=== PATIENT | male | born 1945 | race Caucasian/White ===

== ENCOUNTER 2018-04-01 06:40 | Day surgery (SDC) | payer MEDICARE, OTHER ==
[~2018-04-01] VITALS: Ht 180.3 cm; Wt 115.7 kg
[~2018-04-01 06:40] MED LIST: DAILY MULTIPLE1 EACH PO; DEMADEX20 MG PO; KLOR-CON M1010 MEQ PO; SARAFEM20 MG PO; VITAMIN D1000 UNI1 PO
--- NOTE | 2018-04-01 11:41 | NUR ---
04/01/18 1141 Sheets,[place] 1116 PT ARRIVED TO PACU WITH ORAL AIRWAY IN PLACE. O2 SAT 90%, OXYMASK IN PLACE AT 5L. 1120 DIAGRAMMER AT BEDSIDE AND DOING JAW TRUST ON PT, PT REACTIVE TO PAINFUL STIMULI AND PT OPENED EYES AND ORAL AIRWAY IS REMOVED. AUDIBLE WHEEZES NOTED, PT ENCOURAGED TO COUGH AND CLEARED WITH COUGHING. WITH AUSCULTATION LEFT LUNG CONTINUES TO HAVE WHEEZING THROUGHOUT, PT ENCOURGED TO COUGH, PT REPORTS "HE FEELS LIKE HE HAS A COLD." 1130 PT ABLE TO MOVE IN BED, PT ROLLED HIMSELF TO LEFT SIDE. PT REPORTS THE NEED TO VOID, PT EDUCATION GIVEN ABOUT HELLER AND MEDICATION IN BLADDER.
--- NOTE | 2018-04-01 12:33 | NUR ---
HELLER CATHETER UNCLAMPED, 50 ML OF DARK FLUID WITH MINIMAL AMOUNT OF BLEEDING. PT C/O PAIN AND THE FEELING THAT HIS BLADDER IS FULL. IRRIGATED CATHETER WITH 60 ML OF NS PER DR MUNIZ, FLUID RETURNED CLEAR WITH SCANT AMOUNT OF BRIGHT RED BLOOD. PT CONTINUES TO C/O FEELING THAT BLADDER IS FULL, BUT UNABLE TO URINATE. BLADDER SCAN PER DR MUNIZ SHOWS 0 ML. HELLER CATHETER REMOVED, 25 ML OF FLUID REMOVED FROM BALLOON.
--- NOTE | 2018-04-01 13:19 | NUR ---
PT CONTINUES TO C/O BLADDER SPASMS, DECLINES DILUADID FOR PAIN. VITAL SIGNS STABLE. PT DRANK 300 ML OF WATER AND ATE ONE CUP OF JELLO, TOLERATED WELL AND DENIES NAUSEA.
--- NOTE | 2018-04-01 13:38 | NUR ---
PT AMBULATED WITH STEADY GAIT TO BATHROOM. REPORTS HE VOIDED A FEW DROPS. PT HAS BLADDER SPASMS AND LEAKS URINE. DR MUNIZ NOTIFIED ADND 2ND B&O SUPPOSITORY ORDERED AND GIVEN.
--- NOTE | 2018-04-01 14:14 | NUR ---
PT AMBULATED TO BATHROOM WITH STEADY GAIT TO ATTEMPT TO URINATE. PT CONTINUES TO FEEL LIKE HIS BLADDER IS FULL. PT WAS RESTING ON LEFT SIDE WHEN THIS RN ENTERED THE ROOM. PT WANTING TO GO HOME, AWARE OF THE NEED TO URINATE PRIOR TO D/C.
--- NOTE | 2018-04-01 14:27 | NUR ---
PT SITTING UP IN BED, SOMEWHAT RESTLESS. PT MENTIONED THAT LIGHTS WERE TOO BRIGHT FOR HIM TO SLEEP. NO INTEREST IN TV-JUST SLEEP. TURNED LIGHTS OFF, HE SEEMED MORE RELAXED. THANKED ME, DECLINED PRAYER. WILL FOLLOW NEEDED
--- NOTE | 2018-04-01 14:33 | NUR ---
PT AMBULATED TO AND FROM BATHROOM WITH STEADY GAIT. PASSED SMALL AMOUTN OF URINE PER PT MIXED WITH BLOOD AND SMALL BM. PT REPORTS HE IS READY TO GO HOME. PT TAKING MORE PO FLUID. PT GETTING DRESSED AT THIS TIME. PULL UP BRIEF PROVIDED TO PT.
--- NOTE | 2018-04-04 16:05 | OR ---
[facility] [address], [place] [address] Signed DATE OF OPERATION: 04/01/2018 SURGEON: Eros Muniz MD PREOPERATIVE DIAGNOSES: 1. Gross hematuria. 2. Bladder mass. POSTOPERATIVE DIAGNOSES: 1. History of gross hematuria. 2. 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 PROCEDURES PERFORMED: 1. Urethral dilation using [place] sounds. 2. Transurethral resection of bladder tumor-median. 3. Intravesical instillation of mitomycin chemotherapy. ANESTHESIA: Spinal. ESTIMATED BLOOD LOSS: Minimal. COMPLICATIONS: None. SPECIMENS: Fragments of large papillary bladder mass sent to Pathology for evaluation. DRAINS: A 20-Portuguese 2-way Pérez catheter, capped and taped to the patient's abdomen. INDICATIONS FOR PROCEDURE: Mr. Logan is a very pleasant 72-year-old gentleman with a past medical history of alcohol abuse, hepatitis C, and [id number] of tobacco use, who recently was sent to me for evaluation after experiencing multiple bouts of painless gross hematuria. He had undergone an imaging study, which revealed a large filling defect within the bladder. Based on the imaging results, the decision was made to place him directly on the operating room schedule to undergo diagnostic cystoscopy with likely transurethral Electronically Signed By: EROS MUNIZ MD 04/04/18 1605 PATIENT NAME: FORTINO LOGAN OPERATIVE REPORT DATE OF : 47 REPORT #: [id number] PHYSICIAN: EROS MUNIZ MD PCP: GISELA LION PA-C REPORT IS CONFIDENTIAL AND NOT TO BE RELEASED WITHOUT AUTHORIZATION [facility] [address], [place] [address] Signed resection of bladder mass. He presents today to undergo the aforementioned procedure. OPERATIVE FINDINGS: 1. The patient's urethra was dilated from 20-Portuguese to 30-Portuguese using [place] sounds without difficulty. 2. Diagnostic cystoscopy revealed two large papillary bladder masses located on the dome of the bladder. Both appeared to have necrotic tissue associated with them. The larger mass was on the dome of the bladder closer to the anterior bladder wall, measuring approximately 2.5 cm in size. The tumor itself appeared to be somewhat poorly differentiated and again there was necrotic tissue associated with it. The smaller bladder mass was located in the true dome of the bladder and measured approximately 2 cm in size. Again, areas of necrosis were associated with this mass as well. Total mass size was approximately 4 to 4-1/2 cm in size. This tumor was difficult to resect due to the distance of the dome of the bladder from the bladder neck. It did require external pressure upon the patient's pelvis in order to bring the dome of the bladder down close enough for resection of the tumor, making this an extremely difficult resection. Most of the visualized tumor was resected; however, there was a high likelihood that there were remnants of tumor given the difficulty of the resection and the high risk of perforation at the dome. During the resection, the patient was breathing abdominally and was therefore not still enough for me to resect confidently for fear of bladder perforation near the dome. 3. Overall, 95% of the visible tumor was resected, and I was able to appreciate areas of perivesical fat and detrusor muscle. I am optimistic that I was able to obtain enough tissue sample for Pathology to confirm or deny the presence of invasion into the detrusor. Overall, the bladder tumors appeared to be aggressive and/or atypical in nature. The tumors did not involve either ureteral orifice. 4. Once the visible portion of tumors were resected, a bipolar button was used to cauterize the resection site. Once the patient's bladder was irrigated fully and the specimens were placed in a cup to be sent to Pathology, a 20-Portuguese two-way Pérez was inserted into the patient's bladder and filled with 25 mL of sterile saline. Approximately 40 mg in 20 mL of mitomycin was then instilled into the patient's bladder and the catheter was then attached to his abdomen. The patient will now turn to 20 minutes for a total of 80 minutes. DESCRIPTION OF PROCEDURE: After informed consent was obtained, the patient was taken back to the operating room. He was transferred from [facility] to the operating room table, where spinal anesthesia was induced. He was placed in the dorsal lithotomy position and his genitalia prepped and draped in standard sterile fashion. His urethra was then dilated using [place] sounds. Please see above findings. A rigid cystoscope with a 70-degree lens was then inserted into the patient's bladder and a diagnostic cystoscopy was performed. Please see above findings. I then removed the cystoscope and placed a 28-Portuguese sheath using a Electronically Signed By: EROS MUNIZ MD 04/04/18 160 PATIENT NAME: FORTINO LOGAN OPERATIVE REPORT DATE OF : 47 REPORT #: [id number] PHYSICIAN: EROS MUNIZ MD PCP: GISELA LION PA-C REPORT IS CONFIDENTIAL AND NOT TO BE RELEASED WITHOUT AUTHORIZATION [address] [address] Signed visual obturator. The visual obturator was then removed and then a resectoscope with a 24-Portuguese bipolar loop was then attached. The large tumor was then resected very carefully, all the while external pressure was placed by nursing staff to push the dome of the bladder down towards the resectoscope. Ideally, an extended resectoscope would have been useful in this situation, however, we did not have that particular device. I resected the tumor located at the dome and in areas I could easily see detrusor fiber as well as perivesical fat. There was no evidence of perforation of the dome of the bladder during the resection. Bilateral ureteral orifices were in their normal anatomic location and effluxing clear urine throughout the entire case. The UOs were not in proximity of the tumor. Once I was satisfied that as much of the visible tumor could be resected, I switched off the loop for bipolar button and then cauterized the bed of the tumor as best as I could. The patient's bladder was then irrigated and the fragments of bladder tumor were then sent to Pathology for evaluation. A 20-Portuguese 2-way Pérez catheter was then placed and 25 mL was instilled into the balloon. The catheter was flushed to confirm placement. I then instilled 40 mg in 20 mL of mitomycin into the patient's bladder and capped the catheter. The catheter was then attached to his abdomen. The procedure was then terminated. The patient tolerated the procedure well without any complication. He will now be transferred to the postanesthesia care unit in stable condition. DISPOSITION: I discussed the details of today's procedure with the patient's son-in-law and answered all of his questions. I made it clear to him that this tumor does appear to be likely high grade and possibly aggressive in nature. It appeared to be poorly differentiated and also was noted to have a lot of necrotic tissue associated with the tumor. In my experience, both of these characteristics point to a poor prognosis. I explained to him that we will need to get the pathology report to see if I was able to obtain adequate enough specimen to prove the presence of tumor cells within the detrusor muscle. At that point in time, the patient would be a candidate for cystectomy. If not, he will need to undergo repeat resection in approximately six weeks at which time the patient will need to be paralyzed in order to safely fully resect the possible remaining portions of the tumor. The patient's son-in-law verbalized understanding of this today. He will be discharged to home today with B and O suppositories along with Percocet 10/325, dispensed #30 as needed for pain along with oral antibiotics. He will be scheduled to return to clinic in 6 weeks to discuss his pathology results or sooner as needed. The patient's Pérez catheter will be discontinued prior to his discharge today. Eros Muniz MD Electronically Signed By: EROS MUNIZ MD 04/04/18 1605 PATIENT NAME: FORTINO LOGAN OPERATIVE REPORT DATE OF : 47 REPORT #: [id number] PHYSICIAN: EROS MUNIZ MD PCP: GISELA LION PA-C REPORT IS CONFIDENTIAL AND NOT TO BE RELEASED WITHOUT AUTHORIZATION [facility] [address], [place] [address] Signed AR/MODL /[id number] Copies: ~ Electronically Signed By: EROS MUNIZ MD 04/04/18 1605 PATIENT NAME: FORTINO LOGAN Mariana OPERATIVE REPORT DATE OF : 47 REPORT #: [id number] PHYSICIAN: EROS MUNIZ MD PCP: GISELA LION PA-C REPORT IS CONFIDENTIAL AND NOT TO BE RELEASED WITHOUT AUTHORIZATION
== END 2018-04-01 14:49 | disposition home or self-care (01) ==
LOC: DS 06:40 → OPS 06:40 → DS 08:15 → OPS 08:15
PROVIDERS: Urology
PROC: 0TBB8ZZ Excision of Bladder, Via Natural or Artificial Opening Endoscopic (ICD-10-PCS; principal; 2018-04-01 08:15)
PROC: 3E0M705 Introduction of Other Antineoplastic into Peritoneal Cavity, Via Natural or Artificial Opening (ICD-10-PCS; 2018-04-01 08:15)
DX: C67.1 Malignant neoplasm of dome of bladder (principal); I10 Essential (primary) hypertension; E55.9 Vitamin D deficiency, unspecified; F32.9 Major depressive disorder, single episode, unspecified; F17.210 Nicotine dependence, cigarettes, uncomplicated; Z79.899 Other long term (current) drug therapy
CPT/HCPCS: 00912; 71046; 88307; 94640; J0696; J2250; J2704; J3010; J7120; J9280